=== PATIENT | female | born 1985 | race Caucasian/White ===

== ENCOUNTER 2017-01-09 04:27 | Emergency (ER) | payer OTHER ==
[2017-01-09 05:26] LABS: BASOPHIL 0.4 % (0-2); HCT 40.6 % (37.0-47.0); HGB 14.7 g/dl (12.5-16.0); LYMPHOCYTE 21.7 % (15-48); MCH 31.3 pg (25.0-31.0); MCHC 36.2 g/dL (32.0-36.0); MCV 86.6 fL (78.0-100.0); MONOCYTE 7.9 % (0-12); MPV 9.6 fL (6.0-9.5); PLT 329 K/uL (150-400); RBC 4.69 M/uL (4.20-5.40); RDW 13.4 % (11.5-14.0); WBC 12.5 K/uL (4.0-10.5)
[2017-01-09 05:32] LABS: ALBUMIN 4.7 g/dL (3.5-5.0); BILIRUBIN - TOTAL 1.1 mg/dL (0.1-1.0); CREATININE 0.8 mg/dL (0.5-1.0); GLOBULIN (CALCULATION) 2.7 g/dL (2.2-4.2); POTASSIUM 3.2 mmol/L (3.5-5.1); TOTAL PROTEIN 7.4 g/dL (6.4-8.3)
== END 2017-01-09 05:15 | disposition left against medical advice (07) ==
LOC: FER 04:27
PROVIDERS: Emergency Medicine
DX: R06.02 Shortness of breath (principal)
CPT/HCPCS: 36415; 80053; 85025; 99285; J2930

== ENCOUNTER 2017-03-20 15:03 | Emergency (ER) | payer OTHER | END 2017-03-20 17:29 | disposition left against medical advice (07) | LOC: FER 15:03 | DX: R07.9 Chest pain, unspecified (principal); F41.9 Anxiety disorder, unspecified; F32.9 Major depressive disorder, single episode, unspecified; Z53.8 Procedure and treatment not carried out for other reasons ==

== ENCOUNTER 2017-04-27 08:18 | Emergency (ER) | payer OTHER | END 2017-04-27 09:56 | disposition home or self-care (01) | LOC: FER 08:18 | DX: S39.012A Strain of muscle, fascia and tendon of lower back, initial encounter (principal); E03.9 Hypothyroidism, unspecified; M41.9 Scoliosis, unspecified; F17.210 Nicotine dependence, cigarettes, uncomplicated; Z90.49 Acquired absence of other specified parts of digestive tract; Z79.899 Other long term (current) drug therapy; X50.1XXA Overexertion from prolonged static or awkward postures, initial encounter | CPT/HCPCS: 72110; J1885 ==

== ENCOUNTER 2017-05-02 19:43 | Emergency (ER) | payer OTHER ==
[2017-05-02 20:41] LABS: BASOPHIL 0.7 % (0-2); EOSINOPHIL 3.1 % (0-5); HCT 40.8 % (37.0-47.0); HGB 14.3 g/dl (12.5-16.0); LYMPHOCYTE 32.8 % (15-48); MCH 31.8 pg (25.0-31.0); MCV 90.7 fL (78.0-100.0); MONOCYTE 6.1 % (0-12); NEUTROPHIL 57.3 % (41-80); PLT 280 K/uL (150-400); WBC 7.2 K/uL (4.0-10.5)
[2017-05-02 21:05] LABS: ALBUMIN 4.4 g/dL (3.5-5.0); BILIRUBIN - TOTAL 0.8 mg/dL (0.1-1.0); CREATININE 0.7 mg/dL (0.5-1.0); GLOBULIN (CALCULATION) 2.9 g/dL (2.2-4.2); POTASSIUM 3.9 mmol/L (3.5-5.1); TOTAL PROTEIN 7.3 g/dL (6.4-8.3)
[2017-05-02 21:07] LABS: ACETAMINOPHEN (TYLENOL) < 5.0 ug/mL (10.0-30.0); ALCOHOL (ETOH) MEDICAL NONE DETECTED; SALICYLATE < 6 ug/mL (0-300)
[2017-05-02 22:19] LABS: BILIRUBIN 2+ mg/dL (NEGATIVE); BLOOD NEGATIVE Ery/uL (NEGATIVE); CLARITY CLEAR (CLEAR); COLOR YELLOW (YELLOW); GLUCOSE (U) NORMAL (NORMAL); KETONE (U) NEGATIVE (NEGATIVE); LEUKOCYTES 1+ Leu/uL (NEGATIVE); NITRITE NEGATIVE (NEGATIVE); PROTEIN NEGATIVE (NEGATIVE); UROBILINOGEN 0.2 mg/dL (0.2-1.0); pH 5.5 (5.0-9.0)
[2017-05-02 22:24] LABS: AMPHETAMINES NEGATIVE (NEGATIVE); BARBITURATES NEGATIVE (NEGATIVE); BENZODIAZEPINES NEGATIVE (NEGATIVE); COCAINE NEGATIVE (NEGATIVE); MARIJUANA (THC) NEGATIVE (NEGATIVE)
[2017-05-02 22:25] LABS: METHADONE NEGATIVE (NEGATIVE); TRICYCLIC ANTIDEPRESSANT POSITIVE (NEGATIVE)
[2017-05-02 22:32] LABS: BACTERIA TRACE; URINARY RBC RARE
== END 2017-05-03 00:29 | disposition home or self-care (01) ==
LOC: FER 19:43
PROVIDERS: Emergency Medicine
DX: F32.9 Major depressive disorder, single episode, unspecified (principal); E03.9 Hypothyroidism, unspecified; R10.9 Unspecified abdominal pain; R11.2 Nausea with vomiting, unspecified; F17.200 Nicotine dependence, unspecified, uncomplicated; Z79.899 Other long term (current) drug therapy
CPT/HCPCS: 36415; 80053; 80305; 81001; 84443; 85025; G0480